=== PATIENT | female | born 1995 | race Caucasian/White ===

== ENCOUNTER 2021-04-22 07:58 | Inpatient (IN) ==
[2021-04-22] MEDS ORDERED: ONDANSETRON 4 MG/2 ML VIAL IV ONE (08:21)
[2021-04-22] MEDS ORDERED: SODIUM CHLORIDE 0.9% 1,000 ML IV STA (08:21)
[2021-04-22] MEDS ORDERED: MORPHINE 2 MG/1 ML SYRINGE IV ONE (08:21)
[2021-04-22 08:39] LABS: Basophils % 0.2 % (0.0-0.8); Eosinophils # 0.2 10*3/uL (0.0-0.87); Eosinophils % 2.2 % (0.00-10.9); Hematocrit 41.1 VOL% (35.7-47.0); Hemoglobin 13.4 GM/DL (12.0-16.0); Immature Granulocytes % 0.4 %; Immature Granulocytes Absolute 0.03 #; Lymphocytes # 2.7 10*3/uL (1.4-4.0); Lymphocytes % 31.3 % (21.3-54.2); Mean Corpuscular HGB Conc 32.6 GM/DL (32-36); Mean Platelet Volume 10.4 FL (9.6-12.0); Monocytes % 8.6 % (1.7-12.7); Neutrophils % 57.3 % (38.7-73.9); Platelet Count 372 T/CUMM (130-400); Red Blood Count 5.01 MC/CUMM (3.8-5.5); Red Cell Distribution Width 15.1 % (9.3-17.3); White Blood Count 8.5 T/CUMM (4-12)
[2021-04-22] MEDS ORDERED: MORPHINE 4 MG/1 ML VIAL ONE (08:48)
[2021-04-22 08:59] LABS: Bilirubin,Total 0.4 MG/DL (0.20-1.00); Calcium 8.8 MG/DL (8.5-10.1); Osmolality,Calculated 278.3 MOS/KG (273-304); Potassium 3.5 MMOL/L (3.5-5.1); Total Protein 7.1 G/DL (6.4-8.2)
[2021-04-22 09:10] LABS: INR 0.9; PT Patient Result 10.6 SECS (10.5-12.0)
[2021-04-22 09:15] LABS: Bacteria,Urine Occasional /HPF (Few); RBC,Urine 1 /HPF (0-4); Squamous Epithelial Cell,Urine Occasional /HPF (0-10); Urine Appearance Clear (Clear); Urine Color Yellow (Yellow)
[2021-04-22 09:16] LABS: Bilirubin,Urine Negative (Negative); Blood, Urine Negative (Negative); Glucose,Urine (UA) Negative (Negative); Ketones,Urine Negative (Negative); Nitrite,Urine Negative (Negative); Protein,Urine Negative (Negative); Urine Specific Gravity 1.015 (1.001-1.035); Urine Urobilinogen 0.2 eU/dL (<2.0); Urine pH 8.5 (4.5-8.0)
[2021-04-22] MEDS ORDERED: KETOROLAC 30 MG/1 ML VIAL IV ONE (09:36)
[2021-04-22] MEDS ORDERED: GLUCAGON 1 MG VIAL IM PRN (12:51)
[2021-04-22] MEDS ORDERED: DEXTROSE 10% 250 ML BAG IV PRN (12:59)
[2021-04-22] MEDS: ONDANSETRON 4 MG/2 ML VIAL IV PRN ×2 (16:40→21:12)
[2021-04-22] MEDS: ENOXAPARIN 40 MG/0.4 ML SYRINGE SUBCUT SCH (16:41)
[2021-04-22] MEDS: SODIUM CHLORIDE 0.9% 1,000 ML IV SCH ×2 (16:41→23:47)
[2021-04-22] MEDS: POLYETHYLENE GLYCOL POWDER 17 GM PACK PO SCH (19:35)
[2021-04-22] MEDS: DOCUSATE SODIUM 100 MG CAPSULE PO SCH (21:12)
[2021-04-23 06:13] LABS: Basophils % 0.5 % (0.0-0.8); Eosinophils # 0.2 10*3/uL (0.0-0.87); Eosinophils % 2.4 % (0.00-10.9); Hematocrit 36.9 VOL% (35.7-47.0); Hemoglobin 11.5 GM/DL (12.0-16.0); Immature Granulocytes % 0.3 %; Immature Granulocytes Absolute 0.02 #; Lymphocytes # 2.4 10*3/uL (1.4-4.0); Lymphocytes % 35.9 % (21.3-54.2); Mean Corpuscular HGB Conc 31.2 GM/DL (32-36); Mean Corpuscular Volume 86.6 FL (87-102); Monocytes % 8.6 % (1.7-12.7); Neutrophils % 52.3 % (38.7-73.9); Platelet Count 296 T/CUMM (130-400); Red Blood Count 4.26 MC/CUMM (3.8-5.5); Red Cell Distribution Width 15.3 % (9.3-17.3); White Blood Count 6.6 T/CUMM (4-12)
[2021-04-23 06:33] LABS: Calcium 8.2 MG/DL (8.5-10.1); Osmolality,Calculated 277.3 MOS/KG (273-304); Potassium 4.3 MMOL/L (3.5-5.1)
[2021-04-23 06:37] LABS: Risk Ratio 3.27
[2021-04-23] MEDS: ONDANSETRON 4 MG/2 ML VIAL IV PRN ×2 (08:33→18:21)
[2021-04-23] MEDS: PANTOPRAZOLE 40 MG TABLET PO SCH (08:34)
[2021-04-23] MEDS: POLYETHYLENE GLYCOL POWDER 17 GM PACK PO SCH ×2 (08:34→23:42)
[2021-04-23] MEDS: DOCUSATE SODIUM 100 MG CAPSULE PO SCH ×2 (09:07→21:27)
[2021-04-23] MEDS: ETHINYL ESTRADIOL PO SCH (09:07)
[2021-04-23] MEDS: NORGESTIMATE PO SCH (09:07)
[2021-04-23] MEDS ORDERED: BISACODYL 10 MG SUPP RECTAL ONE (11:08)
[2021-04-23] MEDS: LEVOTHYROXINE 112 MCG TABLET PO SCH (11:38)
[2021-04-23] MEDS: SODIUM CHLORIDE 0.9% 1,000 ML IV SCH (11:39)
[2021-04-23] MEDS: metroNIDAZOLE INJ 500 MG/100 ML PREMIX IV SCH ×2 (13:32→21:23)
[2021-04-23] MEDS: CIPROFLOXACIN INJ 400 MG/200 ML PREMIX IV SCH (14:35)
[2021-04-23] MEDS: ENOXAPARIN 40 MG/0.4 ML SYRINGE SUBCUT SCH (15:17)
[2021-04-24] MEDS: CIPROFLOXACIN INJ 400 MG/200 ML PREMIX IV SCH ×2 (01:14→18:15)
[2021-04-24 04:52] LABS: Basophils % 0.4 % (0.0-0.8); Eosinophils # 0.3 10*3/uL (0.0-0.87); Eosinophils % 3.5 % (0.00-10.9); Hematocrit 37.2 VOL% (35.7-47.0); Hemoglobin 11.8 GM/DL (12.0-16.0); Immature Granulocytes % 0.3 %; Immature Granulocytes Absolute 0.02 #; Lymphocytes # 2.7 10*3/uL (1.4-4.0); Mean Corpuscular HGB Conc 31.7 GM/DL (32-36); Mean Corpuscular Volume 85.3 FL (87-102); Monocytes % 8.6 % (1.7-12.7); Neutrophils % 50.2 % (38.7-73.9); Platelet Count 293 T/CUMM (130-400); Red Blood Count 4.36 MC/CUMM (3.8-5.5); White Blood Count 7.2 T/CUMM (4-12)
[2021-04-24 05:09] LABS: Calcium 8.3 MG/DL (8.5-10.1); Osmolality,Calculated 277.3 MOS/KG (273-304); Potassium 3.6 MMOL/L (3.5-5.1)
[2021-04-24] MEDS: metroNIDAZOLE INJ 500 MG/100 ML PREMIX IV SCH ×3 (05:16→21:08)
[2021-04-24] MEDS: LEVOTHYROXINE 112 MCG TABLET PO SCH (06:09)
[2021-04-24] MEDS: SODIUM CHLORIDE 0.9% 1,000 ML IV SCH (06:10)
[2021-04-24 07:42] LABS: Free T4 (Free Thyroxine) 1.18 NG/DL (0.76-1.46)
[2021-04-24] MEDS ORDERED: propofoL 200 MG/20 ML VIAL IV ONE (12:06)
[2021-04-24] MEDS ORDERED: LIDOCAINE 2% 5 ML VIAL ONE ×3 (12:07)
[2021-04-24] MEDS ORDERED: ROCURONIUM 50 MG/5 ML VIAL IV ONE (12:07)
[2021-04-24] MEDS ORDERED: fentaNYL 100 MCG/2 ML VIAL ONE (12:08)
[2021-04-24] MEDS ORDERED: MIDAZOLAM 2 MG/2 ML VIAL ONE (12:08)
[2021-04-24] MEDS ORDERED: SUCCINYLCHOLINE 200 MG/10 ML VIAL ONE (12:09)
[2021-04-24] MEDS ORDERED: BUPIVACAINE MPF 0.25% 30 ML VIAL ONE (12:11)
[2021-04-24] MEDS ORDERED: LIDOCAINE 1%/EPI INJ 20 ML VIAL ONE (12:12)
[2021-04-24] MEDS ORDERED: DEXAMETHASONE 4 MG/1 ML VIAL ONE (13:10)
[2021-04-24] MEDS ORDERED: ACETAMINOPHEN INJ 0 MG/0 ML VIAL IV ONE (13:10)
[2021-04-24] MEDS ORDERED: ONDANSETRON 4 MG/2 ML VIAL ONE (13:10)
[2021-04-24] MEDS ORDERED: ACETAMINOPHEN INJ 1,000 MG/100 ML VIAL IV ONE (13:10)
[2021-04-24] MEDS ORDERED: HYDROmorphone 1 MG/1 ML SYRINGE ONE ×2 (13:30→14:23)
[2021-04-24] MEDS ORDERED: TISSUE ADHESIVE 1 EACH APPLICATOR TOP ONE (13:30)
[2021-04-24] MEDS ORDERED: NEOSTIGMINE 10 MG/10 ML VIAL ONE (13:36)
[2021-04-24] MEDS ORDERED: SEVOFLURANE 1 UNIT/15 MINUTE INH ONE ×3 (13:46→14:07)
[2021-04-24] MEDS ORDERED: GLYCOPYRROLATE 0.4 MG/2 ML VIAL ONE (13:46)
[2021-04-24] MEDS ORDERED: LACTATED RINGERS 1,000 ML IV ONE (13:47)
[2021-04-24] MEDS ORDERED: ONDANSETRON 4 MG/2 ML VIAL IV PRN (14:21)
[2021-04-24] MEDS: HYDROmorphone 1 MG/1 ML SYRINGE IV PRN ×2 (14:28→14:41)
[2021-04-24] MEDS ORDERED: HYDROmorphone 1 MG/1 ML SYRINGE IV PRN (15:32)
[2021-04-24] MEDS ORDERED: KETOROLAC 30 MG/1 ML VIAL IV PRN (15:37)
[2021-04-24] MEDS: DOCUSATE SODIUM 100 MG CAPSULE PO SCH (17:20)
[2021-04-24] MEDS: NORGESTIMATE PO SCH (17:21)
[2021-04-24] MEDS: ETHINYL ESTRADIOL PO SCH (17:21)
[2021-04-24] MEDS: POLYETHYLENE GLYCOL POWDER 17 GM PACK PO SCH (17:21)
[2021-04-24] MEDS: PANTOPRAZOLE 40 MG TABLET PO SCH (17:22)
[2021-04-24] MEDS: ENOXAPARIN 40 MG/0.4 ML SYRINGE SUBCUT SCH (17:25)
[2021-04-25] MEDS: DOCUSATE SODIUM 100 MG CAPSULE PO SCH ×2 (01:01→09:04)
[2021-04-25] MEDS: POLYETHYLENE GLYCOL POWDER 17 GM PACK PO SCH ×2 (01:01→09:01)
[2021-04-25] MEDS: CIPROFLOXACIN INJ 400 MG/200 ML PREMIX IV SCH (04:32)
[2021-04-25 05:40] LABS: Basophils % 0.2 % (0.0-0.8); Hematocrit 43.7 VOL% (35.7-47.0); Hemoglobin 13.8 GM/DL (12.0-16.0); Immature Granulocytes % 0.4 %; Immature Granulocytes Absolute 0.05 #; Lymphocytes # 1.9 10*3/uL (1.4-4.0); Lymphocytes % 15.2 % (21.3-54.2); Mean Corpuscular HGB Conc 31.6 GM/DL (32-36); Mean Corpuscular Volume 83.1 FL (87-102); Mean Platelet Volume 11.1 FL (9.6-12.0); Monocytes % 7.3 % (1.7-12.7); Neutrophils % 76.9 % (38.7-73.9); Platelet Count 404 T/CUMM (130-400); Red Blood Count 5.26 MC/CUMM (3.8-5.5); Red Cell Distribution Width 14.9 % (9.3-17.3); White Blood Count 12.3 T/CUMM (4-12)
[2021-04-25 05:44] LABS: Calcium 8.5 MG/DL (8.5-10.1); Osmolality,Calculated 273.5 MOS/KG (273-304); Potassium 3.5 MMOL/L (3.5-5.1)
[2021-04-25] MEDS: metroNIDAZOLE INJ 500 MG/100 ML PREMIX IV SCH (05:53)
[2021-04-25] MEDS: LEVOTHYROXINE 112 MCG TABLET PO SCH (05:54)
[2021-04-25] MEDS: PANTOPRAZOLE 40 MG TABLET PO SCH (09:01)
[2021-04-25 11:38] VITALS: BP 116/59
[2021-04-26] MEDS ORDERED: LEVOTHYROXINE 125 MCG TABLET PO SCH (06:30)
== END 2021-04-25 13:15 | disposition home or self-care (01) | DRG 343 ==
LOC: N.EDINP 07:58 → N.ED 07:58 → N.EDINP 21:56 → N.OB 22:12 → SUATTDRO 04-24 11:11
PROVIDERS: ADMIT Internal Medicine; ATTEND Internal Medicine